=== PATIENT | male | born 1990 | race Hispanic/Latino ===

== ENCOUNTER 2018-01-27 02:06 | Emergency (ER) | payer MEDICAID, OTHER ==
[2018-01-27] MEDS ORDERED: TETANUS/DIPHTHERIA TOXOID [ADULT] 0.5 ML VIAL IM ONE (03:02)
== END 2018-01-27 03:18 | disposition home or self-care (01) ==
LOC: EDH 02:06
DX: S80.861A Insect bite (nonvenomous), right lower leg, initial encounter (principal); L03.115 Cellulitis of right lower limb; W57.XXXA Bitten or stung by nonvenomous insect and other nonvenomous arthropods, initial encounter; Y93.89 Activity, other specified; Y92.89 Other specified places as the place of occurrence of the external cause; Y99.8 Other external cause status
CPT/HCPCS: 90471; 90714

== ENCOUNTER 2019-11-03 18:34 | Emergency (ER) | payer SELFPAY ==
[2019-11-03] MEDS ORDERED: KETOROLAC TROMETHAMINE 60 MG/2 ML VIAL ONE (18:58)
[2019-11-03] MEDS ORDERED: DIAZEPAM 5 MG TABLET ONE (18:58)
[2019-11-03] MEDS ORDERED: LIDOCAINE 5% TOPICAL PATCH TP ONE (18:58)
== END 2019-11-03 20:20 | disposition home or self-care (01) ==
LOC: EDH 18:34
DX: M54.16 Radiculopathy, lumbar region (principal)
CPT/HCPCS: 96372; 99283; J1885

== ENCOUNTER 2022-08-22 21:15 | Emergency (ER) | payer OTHER ==
[~2022-08-22] VITALS: Ht 177.8 cm; Wt 103.0 kg
[2022-08-22 21:55] LABS: BASOPHILS % (AUTO) 0.5 % (0.0-5.0); EOSINOPHILS % (AUTO) 0.5 % (0.0-8.0); HEMATOCRIT 44.1 % (42-54); LYMPHOCYTES % (AUTO) 35.8 % (21.0-51.0); MEAN CORPUSCULAR HEMOGLOBIN 28.5 pg (27.0-33.0); MEAN CORPUSCULAR HGB CONC 32.9 g/dL (32.0-36.0); MEAN CORPUSCULAR VOLUME 86.6 fL (79-99); MONOCYTES % (AUTO) 7.4 % (3.0-13.0); NEUTROPHILS % (AUTO) 55.6 % (40.0-77.0); PLATELET COUNT (AUTO) 221 K/uL (130-400); RED BLOOD CELL COUNT(AUTO) 5.09 MIL/uL (4.50-6.20); RED CELL DISTRIBUTION WIDTH 12.9 % (11.0-15.5); WHITE BLOOD COUNT (AUTO) 4.2 K/uL (4.8-10.8)
[2022-08-22] MEDS ORDERED: ONDANSETRON 4MG TABLET PO ONE (22:00)
[2022-08-22] MEDS ORDERED: ONDANSETRON 4MG INJ IVP ONE (22:00)
[2022-08-22] MEDS ORDERED: KETOROLAC 30MG VIAL (30MG/ML) IM ONE (22:00)
[2022-08-22 22:06] LABS: CREATININE 1.1 mg/dL (0.5-1.5); POTASSIUM 3.7 mmol/L (3.5-5.1)
[2022-08-22 22:10] LABS: ALBUMIN 4.2 g/dL (3.5-5.0); TOTAL PROTEIN, SERUM 8.1 g/dL (6.0-8.3)
[2022-08-22] MEDS ORDERED: IBUP-2070 PO (23:29)
[2022-08-23 00:05] LABS: APPEARANCE,URINE CLEAR (CLEAR); BILIRUBIN,URINE NEGATIVE (NEGATIVE); COLOR,URINE YELLOW (YELLOW); GLUCOSE, URINE (UA) NEGATIVE (NEGATIVE); KETONES,URINE NEGATIVE (NEGATIVE); LEUKOCYTE ESTERASE ,URINE NEGATIVE Leu/uL (NEGATIVE); NITRATE,URINE NEGATIVE (NEGATIVE); OCCULT BLOOD,URINE NEGATIVE (NEGATIVE); PH,URINE 5.5 (5.0-8.0); PROTEIN,URINE 50 mg/dL (NEGATIVE); UROBILINOGEN,URINE 0.2 mg/dL (0.2-1.0)
[2022-08-23] MEDS ORDERED: CYCL10TA16 PO (00:12)
[2022-08-23 00:31] VITALS: BP 110/74
== END 2022-08-23 00:33 | disposition home or self-care (01) ==
LOC: EDH 21:15
DX: R10.9 Unspecified abdominal pain (principal); M54.9 Dorsalgia, unspecified; R11.2 Nausea with vomiting, unspecified; Z79.1 Long term (current) use of non-steroidal anti-inflammatories (NSAID)
CPT/HCPCS: 99285; 74176; 96374; 80053; 85025; 81003; 36415; 96372; J1885

== ENCOUNTER 2023-07-06 22:59 | Emergency (ER) | payer OTHER ==
[~2023-07-06] VITALS: Ht 177.8 cm; Wt 88.5 kg
[~2023-07-06 22:59] MED LIST: CYCL10TA16 PO; IBUP-2070 PO
[2023-07-06] MEDS ORDERED: IBUPROFEN 400 MG TABLET ONE (23:14)
[2023-07-06] MEDS ORDERED: DICL20GE TP (23:52)
[2023-07-06] MEDS ORDERED: NAPR-1180 PO (23:52)
[2023-07-07 00:14] VITALS: BP 130/52; PULSE 74; RESP 18; O2SAT 98
== END 2023-07-07 00:43 | disposition home or self-care (01) ==
LOC: EDH 22:59
DX: M25.561 Pain in right knee (principal); M79.89 Other specified soft tissue disorders
CPT/HCPCS: 29505; 73564

== ENCOUNTER 2024-04-25 17:50 | Emergency (ER) | payer SELFPAY ==
[~2024-04-25] VITALS: Ht 177.8 cm; Wt 97.5 kg
[~2024-04-25 17:50] MED LIST changes: +DICL20GE TP; +NAPR-1180 PO
[2024-04-25] MEDS: KETOROLAC 15MG/ML VIAL (15MG/ML) IM STA (18:15)
[2024-04-25 18:53] VITALS: BP 108/72; PULSE 72; RESP 16; O2SAT 98
[2024-04-25] MEDS ORDERED: METH100054 PO (18:58)
[2024-04-25] MEDS ORDERED: NAPR-1192 PO (18:58)
== END 2024-04-25 19:25 | disposition home or self-care (01) ==
LOC: EDH 17:50
DX: M54.50 Low back pain, unspecified (principal); Z79.899 Other long term (current) drug therapy; W18.39XA Other fall on same level, initial encounter; Y93.89 Activity, other specified; Y92.89 Other specified places as the place of occurrence of the external cause; Y99.8 Other external cause status
CPT/HCPCS: 99285; 72131; 96372; J1885